=== PATIENT | male | born 2000 | race Two or more races ===

== ENCOUNTER 2025-02-10 10:12 | Emergency (ER) | payer OTHER ==
[~2025-02-10] VITALS: Ht 165.1 cm; Wt 63.5 kg
[2025-02-10] MEDS ORDERED: BACITRACIN-NEOMYCIN-POLYMYXIN 0.9 GM PACKET TOP ONE (11:07)
[2025-02-10] MEDS ORDERED: LIDOCAINE HCL 1% 10ML VIAL ONE (11:08)
[2025-02-10] MEDS ORDERED: POVIDONE-IODINE 118 ML BOTT TOP ONE (11:08)
== END 2025-02-10 13:22 | disposition home or self-care (01) ==
LOC: ER 10:12
DX: S01.01XA Laceration without foreign body of scalp, initial encounter (principal); X58.XXXA Exposure to other specified factors, initial encounter; Y93.89 Activity, other specified; Y92.89 Other specified places as the place of occurrence of the external cause; Y99.9 Unspecified external cause status

== ENCOUNTER 2025-02-20 11:43 | Emergency (ER) | payer OTHER ==
[~2025-02-20] VITALS: Ht 167.6 cm; Wt 65.8 kg
== END 2025-02-20 12:51 ==
LOC: ER 11:43
DX: Z48.02 Encounter for removal of sutures (principal)